=== PATIENT | female | born 1940 | race American Indian/Alaskan Native ===

== ENCOUNTER 2017-02-20 14:56 | Emergency (ER) | payer MEDICARE ==
[2017-02-20 15:09] LABS: Basophils % (Auto) 0.5 % (0.0-1.8); Eosinophils % (Auto) 0.4 % (0.0-4.3); Hematocrit 36.5 % (30.3-42.9); Hemoglobin 11.3 gm/dl (10.1-14.3); Mean Corpuscular HGB Conc 31 % (30-34); Mean Corpuscular Hemoglobin 27 pg (28-32); Mean Corpuscular Volume 88 fl (79-97); Platelet Count 274 K/mm3 (140-440); Red Blood Count 4.17 M/mm3 (3.65-5.03); Red Cell Distribution Width 15.7 % (13.2-15.2); White Blood Count 14.4 K/mm3 (4.5-11.0)
--- NOTE | 2017-02-20 15:20 | Cat Scan Report ---
CT HEAD WITHOUT CONTRAST: HISTORY: CVA. Serial contiguous axial images were obtained through the cranium. Intravenous contrast material was not administered. Chronic cortical infarct in the right parietal region measures 4.3 x 2.7 cm. Chronic cortical infarct in the left superior temporal lobe measures 6.5 x 2.7 cm. No large area of acute ischemia, hemorrhage, mass or extra-axial fluid collection is appreciated. Ventricular size is within normal limits. The posterior fossa and contents are unremarkable. The mastoid air cells and visualized portions of the sinuses are normal. IMPRESSION: No acute intracranial process is detected on noncontrast CT. Chronic infarcts as described. These findings were discussed with Dr. Márquez in the emergency department at 1518 hrs.
[2017-02-20 15:24] LABS: INR 1.28 (0.87-1.13)
[2017-02-20 15:25] LABS: Partial Thromboplastin Time 28.6 Sec. (24.2-36.6)
[2017-02-20 15:28] LABS: Anion Gap 16 mmol/L; Blood Urea Nitrogen 21 mg/dL (7-17); Calcium 8.6 mg/dL (8.4-10.2); Carbon Dioxide 26 mmol/L (22-30); Chloride 103.3 mmol/L (98-107); Glucose 107 mg/dL (65-100); Potassium 4.1 mmol/L (3.6-5.0); Sodium 141 mmol/L (137-145)
--- NOTE | 2017-02-20 15:44 | Emergency Department Report ---
HPI - General Chief Complaint: Neuro Symptoms/Deficit Time Seen by Provider: 02/20/17 14:59 - HPI HPI: This is a 76 year-old female who presents to the emergency department by EMS from a home that she shares with her sister with complaint of altered mental status and/or questionable stroke. The patient does have a history of 2 previous CVA that left her with some slurred speech but unknown if there is any known motor or sensory deficits. Likely the patient was eating and talking when all of a sudden she became nonverbal, was staring off and spit out her food. This is how she presents to the emergency department and therefore is a poor historian. Code stroke was called. ED Past Medical Hx - Past Medical History Previous Medical History?: Yes Hx Hypertension: Yes (13 years, no meds today, high cholesterol) Hx CVA: Yes Hx Renal Disease: Yes (Chronic, no dialysis) - Surgical History Past Surgical History?: No - Social History Smoking Status: Unknown if ever smoked Substance Use Type: Prescribed - Medications Home Medications: Home Medications Medication Instructions Recorded Confirmed Last Taken Type Apixaban [Eliquis] 5 mg PO BID 02/20/17 02/20/17 Unknown History Aspirin 81 mg PO DAILY 02/20/17 02/20/17 Unknown History AtorvaSTATin [Lipitor] 1 tab PO DAILY 02/20/17 02/20/17 Unknown History Carvedilol [Coreg] 3.125 mg PO BID 02/20/17 02/20/17 Unknown History Ciprofloxacin HCl [Ciprofloxacin 500 mg PO DAILY 02/20/17 02/20/17 Unknown History TAB] Escitalopram [Lexapro] 10 mg PO DAILY 02/20/17 02/20/17 Unknown History Lisinopril [Zestril] 5 mg PO QDAY 02/20/17 02/20/17 Unknown History ED Review of Systems ROS: Stated complaint: STROKE Other details as noted in HPI Comment: Unobtainable due to pts medical conditions Physical Exam - Physical Exam Vital Signs: Vital Signs 02/20/17 15:20 O2 Sat by Pulse 89 Oximetry Physical Exam: GENERAL: Patient is ill-appearing. HENT: Normocephalic. Atraumatic. Patient has moist mucous membranes. EYES: Patient appears to have a left-sided gaze preference. Pupils equal reactive to light bilaterally. NECK: Supple. Trachea is midline. CHEST/LUNGS: Clear to auscultation. There is no respiratory distress noted. HEART/CARDIOVASCULAR: Irregularly irregular with normal rate. No obvious murmur. ABDOMEN: Abdomen is soft, nontender. Patient has normal bowel sounds. There is no abdominal distention. SKIN: Skin is warm and dry. NEURO: The patient is awake but nonverbal and noncooperative. Her head and gaze is to the left. If her extremities are lifted off the gurney and allowed to fall and they will follow the way to the gurney like she has paralysis or paresis. However with painful stimuli to the nailbeds of each of the 4 extremities the patient will withdraw from pain towards her body and off gurney. She is completely nonverbal and otherwise will not follow any commands. MUSCULOSKELETAL: There is no tenderness or deformity. There is no evidence of acute injury. ED Course Vital Signs 02/20/17 15:20 O2 Sat by Pulse 89 Oximetry - Consultations Consultation #1: I spoke to the telemedicine neurologist, Dr. Daly, who does not feel that the patient would be a obvious TPA candidate due to her advanced age and large previous strokes. He has asked for us to try and get in touch with any family to discuss risks versus benefits of TPA and he will be calling back soon. 02/20/17 15:44 02/20/17 16:25 Dr. Daly reassess the patient and in the meantime we were able to speak with the nephew who is the POA and he says that the patient had a stroke several weeks ago at [facility]. At that time she was left with some transient global aphasia and some weakness. She spent 2-3 weeks afterwards with 24 hour home health care. The past few weeks she's been improved with some physical therapy and last home health care necessary. The patient also appears to be on eloquent secondary to atrial fibrillation or flutter. For this reason he does not feel the patient is a TPA candidate. Also patient has showed some improvement here in the emergency department and no longer has a left-sided gaze deficit. With this improvement in his history he has concern that the patient has possibly had a stroke. Either way TPA is not necessary but he recommends transfer to a facility that has neurology for at least an EEG if not further neurological care. I spoken to Dr. Herbert at [facility] who has tentatively accepted transfer. He has to check with the bed control to see if there is a bed available and look at the CT scan but is asked for an ambulance to be set in motion. Consultation #2: [facility] was unable to accept the patient for transfer as I do not have any beds available. He recommended trying Keppra so that if this is a seizure she does not have [id number] seizures or status epilepticus. He took a look at the CT of the head without contrast and did not see any area that appeared consistent with acute ischemia 02/20/17 16:44 02/20/17 18:20 I spoke to [facility] and a Dr. Olivares on the neurology service. Dr. Olivares was gracious enough to assist in finding placement at [facility] under Dr. Ravi Villa. Patient is awaiting transport at this time. The nephew has been updated. ED Medical Decision Making - Lab Data Result diagrams: 02/20/17 15:00 02/20/17 15:00 - EKG Data -: EKG Interpreted by Ar - EKG Data When compared to previous EKG there are: previous EKG unavailable Interpretation: other (atrial flutter at 72 bpm, normal axis, no ST elevation IA ) - Radiology Data Radiology results: report reviewed CT HEAD WITHOUT CONTRAST: HISTORY: CVA. Serial contiguous axial images were obtained through the cranium. Intravenous contrast material was not administered. Chronic cortical infarct in the right parietal region measures 4.3 x 2.7 cm. Chronic cortical infarct in the left superior temporal lobe measures 6.5 x 2.7 cm. No large area of acute ischemia, hemorrhage, mass or extra-axial fluid collection is appreciated. Ventricular size is within normal limits. The posterior fossa and contents are unremarkable. The mastoid air cells and visualized portions of the sinuses are normal. IMPRESSION: No acute intracranial process is detected on noncontrast CT. Chronic infarcts as described. - Medical Decision Making 76-year-old female presents to the emergency department with some acute altered mental status. For this reason a code stroke was called. Stat CT of the head did not show any bleed, shift, mass or any acute process. She was seen by telemedicine neurology who at first did not feel the patient was a TPA candidate. He called back to do a reassessment and in the interim I was able to talk with the DPOA/nephew gave information about patient's recent CVA, being on Eliquis, history of atrial fibrillation. This helped the telemedicine neurologist, along with some improvement in the patient's condition, decided the patient was not a TPA candidate. He also felt that the patient may be displaying postictal status. However based on the complexity of this case, he recommended the patient be transferred to a facility that has a on-call neurology team. I spoke in great detail with Dr. Herbert at [facility] who was nice enough to evaluate the case and also does not know for certain if this is a CVA versus seizure versus other but does recommend Keppra administration. He says they would be happy to accept the patient except for the fact they do not have any beds available and he recommended every hospital. I contacted [facility] and spoke with a Dr. Olivares who listened to the case presentation and was gracious enough to accommodate a transfer to [facility] to Dr. Ravi Villa. Patient did have some hypertensive issues so she was given 2 different doses of labetalol. She was otherwise hemodynamically stable. All the information from the patient's presentation through transfer was given to the patient's nephew. It should be noted that the patient's blood pressure was about 150/90 on the time EMS picked the patient. - Differential Diagnosis CVA, TIA, seizure, sepsis Critical Care Time: Yes Critical care time in (mins) excluding proc time.: 35 Critical care attestation.: If time is entered above; I have spent that time in minutes in the direct care of this critically ill patient, excluding procedure time. Good care time was spent on this patient and doing her initial evaluation, multiple re-evaluations , discussion with the telemedicine neurologist, discussion with the [facility] neurologist, discussion with the [facility] neurologist, discussion with the nephew/power of insurance attorney, ordering interpretation of labs, ordering and interpretation of imaging and disposition planning including transfer. Critical Care Time: 35 minutes ED Disposition Clinical Impression: Hypertensive urgency, Renal insufficiency Altered mental status Qualifiers: Altered mental status type: transient alteration of awareness Qualified Code(s) : R40.4 - Transient alteration of awareness TIA (transient ischemic attack) Qualifiers: Transient cerebral ischemia type: unspecified Qualified Code(s): G45.9 - Transient cerebral ischemic attack, unspecified Atrial flutter Qualifiers: Atrial flutter type: unspecified Qualified Code(s): I48.92 - Unspecified atrial flutter Disposition: [id number]/[id number] ANOTHER TYPE HLTHCARE Is pt being admited?: No Condition: Fair Referrals: PRIMARY CARE, [Primary Care Provider] - 3-5 Days Time of Disposition: 19:33
[2017-02-20] MEDS ORDERED: NORMODYNE IV ONE ×2 (16:19→18:15)
[2017-02-20] MEDS ORDERED: KEPPRA 1,000 MG/NS 0.75% 100ML 1,000 MG/100 ML BAG IV ONE (16:42)
[2017-02-20 18:34] VITALS: BP 190/96
== END 2017-02-20 18:54 | disposition other institution (70) ==
LOC: ED 14:56
DX: I16.0 Hypertensive urgency (principal); G45.9 Transient cerebral ischemic attack, unspecified; I48.92 Unspecified atrial flutter; I12.0 Hypertensive chronic kidney disease with stage 5 chronic kidney disease or end stage renal disease; N18.6 End stage renal disease; Z99.2 Dependence on renal dialysis; Z86.73 Personal history of transient ischemic attack (TIA), and cerebral infarction without residual deficits; Z79.82 Long term (current) use of aspirin
CPT/HCPCS: 36415; 70450; 80048; 82962; 84484; 85025; 85610; 85670; 85730; 93005; 93010; 96365; 96375; 96376; 99291; J1953